=== PATIENT | female | born 1965 | race Caucasian/White ===

== ENCOUNTER 2024-05-31 11:55 | Inpatient (IN) | payer OTHER ==
[2024-05-31] VITALS (7 sets, daily range): BP systolic 159–189; BP diastolic 82–121
[~2024-05-31] VITALS: Ht 154.9 cm; Wt 130.5 kg
[~2024-05-31 11:55] MED LIST: Etomidate 2MG / ML 10ML Vial IV ONE; Rocuronium Bromide 10 MG/ML 5ML Injection IV ONE
[2024-05-31 13:12] LABS: BASOPHILS ABSOLUTE AUTO 0.04 K/mm3 (0.00-0.23); BASOPHILS PERCENT AUTO 0 % (0-2); EOSINOPHILS ABSOLUTE AUTO 0.04 K/mm3 (0.00-0.68); EOSINOPHILS PERCENT AUTO 0 % (0-6); Hematocrit 34.7 % (33.0-51.0); Hemoglobin 11.4 g/dL (11.5-16.0); IMMATURE GRAN ABSOLUTE AUTO 0.09 K/mm3 (0.00-0.10); IMMATURE GRAN PERCENT AUTO 1 % (0-1); LYMPHOCYTES ABSOLUTE AUTO 1.59 K/mm3 (0.84-5.20); LYMPHOCYTES PERCENT AUTO 12 % (21-46); MONOCYTES ABSOLUTE AUTO 0.62 K/mm3 (0.16-1.47); MONOCYTES PERCENT AUTO 5 % (4-13); Mean Corpuscular HGB 28.4 pg (26.0-34.0); Mean Corpuscular HGB Conc 32.9 g/dL (31.5-36.5); Mean Corpuscular Volume 87 fL (80-100); Mean Platelet Volume 10.1 fL (9.1-12.4); NEUTROPHILS ABSOLUTE AUTO 11.18 K/mm3 (1.96-9.15); NEUTROPHILS PERCENT AUTO 82 % (41-73); Platelet Count 225 K/mm3 (150-400); RDW Coefficient Variation 15.3 % (11.7-14.2); RDW Standard Deviation 48.1 fL (35.1-46.3); Red Blood Cell Count 4.01 M/mm3 (3.80-5.20); White Blood Cell Count 13.56 K/mm3 (4.00-11.30)
[2024-05-31 13:39] LABS: Albumin, Blood 3.2 g/dL (3.4-5.0); Albumin/Globulin Ratio 0.9 (0.8-1.8); Bilirubin, Total 0.8 mg/dL (0.1-1.0); Bun/Creatinine Ratio 25.6 (12.0-20.0); Calcium, Blood 8.9 mg/dL (8.5-10.1); Creatinine, Blood 0.7 mg/dL (0.40-1.00); Globulin, Blood 3.7 g/dL (2.2-4.0); Potassium, Blood 3.8 mmol/L (3.5-5.5); Total Protein, Blood 6.9 g/dL (6.4-8.2)
[2024-05-31] MEDS ORDERED: MethylPREDNISolone Sod Succ 125 MG Vial IV ONE (15:05)
[2024-05-31] MEDS ORDERED: NS 1,000 ML IV SCH ×2 (15:05→18:30)
[2024-05-31] MEDS ORDERED: CefTRIAXone Sodium 2,000 MG in NS 100 ML IV ONE (15:05)
[2024-05-31] MEDS ORDERED: Azithromycin 250 MG Tab PO ONE (15:05)
[2024-05-31] MEDS ORDERED: Ibuprofen 600 MG Tab PO ONE (16:45)
[2024-05-31] MEDS ORDERED: Albuterol 2.5 MG/3 ML VIAL INH PRN (18:30)
[2024-05-31] MEDS ORDERED: Ondansetron HCl 2 MG / ML 2ML Vial IV PRN (18:30)
[2024-05-31] MEDS ORDERED: FLU VACC TS2024-25(6MOS UP)/PF 45 MCG/0.5 ML SYRINGE IM SCH (18:30)
[2024-05-31] MEDS ORDERED: TELMISARTAN-HC1 EAC5 PO (20:06)
[2024-05-31] MEDS ORDERED: PRAM.125 PO (20:07)
[2024-05-31] MEDS ORDERED: VALP250 PO (20:07)
[2024-05-31] MEDS ORDERED: OXYB5 PO (20:07)
[2024-05-31] MEDS ORDERED: MONT10T PO (20:07)
[2024-05-31] MEDS ORDERED: BUPR75 PO (20:07)
--- NOTE | 2024-05-31 21:14 | NUR ---
PATIENT TO ICU 2 FROM ER AT 2020. PATIENT IS ALERT AND ORIENTED X4. SP02 88% ON 15L VIA HI-FLOW NC, CONSISTENT CONGESTED COUGH, PINK/RED SPUTUM, DESATS TO LOWER 80s, LS COARSE T/O, RT CALLED AND WILL PLACE ON AIRVO. HR SR 70s, BP HYPERTENSIVE AT TIMES, SOME CHEST TIGHTNESS FROM COUGHING, DENIES CP/PRESSURE OTHERWISE. BEDREST D/T SOB WITH ANY ACTIVITY. CONTINENT. FAMILY AT BEDSIDE, CALL LIGHT IN REACH. SEE ASSESSMENT FOR MORE INFORMATION
[2024-05-31 22:44] LABS: PCO2 Arterial 34.3 mmHg (35-45); PO2 Arterial 57.9 mmHg (80-100); pH Blood Arterial 7.42 (7.35-7.45)
--- NOTE | 2024-05-31 22:44 | NUR ---
PATIENT IN AIRVO FOR APPROX 1 HOUR SO FAR, STILL SOB SP02 89%, RR 30s. HOSPITALIST CALLED, ABG DRAWN AND HE WILL BE AT BEDSIDE TO ASSESS PATIENT
[2024-05-31] MEDS ORDERED: propofoL 100 ML IV SCH (23:10)
[2024-05-31] MEDS ORDERED: FentaNYL Citrate 50 MCG/ML 2 ML Injection IV PRN (23:55)
[2024-06-01] VITALS (93 sets, daily range): BP systolic 95–159; BP diastolic 58–106
[2024-06-01] MEDS ORDERED: Hydrogen Peroxide 1.5 % Solution MT SCH
[2024-06-01] MEDS ORDERED: Midazolam HCl 1MG / ML 2ML Vial IV PRN (00:15)
[2024-06-01 00:47] LABS: Adenovirus Not Detected (NOT DETECT); Coronavirus 229E Not Detected (NOT DETECT); Coronavirus HKU1 Not Detected (NOT DETECT); Coronavirus NL63 Not Detected (NOT DETECT); Coronavirus OC43 Not Detected (NOT DETECT); Human Metapneumovirus Not Detected (NOT DETECT); Human Rhinovirus/Enterovirus Not Detected (NOT DETECT); Influenza A/2009-H1 Not Detected (NOT DETECT); Influenza A/H1 Not Detected (NOT DETECT); Influenza A/H3 Not Detected (NOT DETECT); Influenza B Not Detected (NOT DETECT); Parainfluenza Virus 1 Not Detected (NOT DETECT); Parainfluenza Virus 2 Not Detected (NOT DETECT); Parainfluenza Virus 3 Not Detected (NOT DETECT); Parainfluenza Virus 4 Not Detected (NOT DETECT); SARS-Cov-2 (COVID-19), BioFire Not Detected (NOT DETECT)
[2024-06-01 00:48] LABS: Bordetella pertussis Not Detected (NOT DETECT); Chlamydophila pneumoniae Not Detected (NOT DETECT); Mycoplasma pneumoniae Not Detected (NOT DETECT); Respiratory Syncytial Virus Not Detected (NOT DETECT)
--- NOTE | 2024-06-01 01:02 | NUR ---
PATIENTS WORK OF BREATHING CONTINUED TO INCREASE EVEN ON AIRVO, PATIENT STATING SHE COULDNT BREATHE, SP02 88%, RR 30s. HOSPITALIST TO BEDSIDE DECISION TO INTUBATE, PATIENT AGREED. 2301- 40 MG ETOMIDATE 2302- 80 MG ROCURONIUM 2307- ETT PLACED 8.0 26 CM CHEST X-RAY DONE AND ETT ADJUSTED TO 22 CM AT TEETH AT APPROX 0030. PROPOFOL INSUFING AND PUSHES OF FENTANYL AND VERSED PRN FOR SEDATION ADJUNCT. TRAVIS PLACED, PATENT AND DRAINING TO GRAVITY
[2024-06-01 01:41] LABS: PO2 Arterial 76.5 mmHg (80-100); pH Blood Arterial 7.34 (7.35-7.45)
[2024-06-01 04:03] LABS: BASOPHILS ABSOLUTE AUTO 0.01 K/mm3 (0.00-0.23); BASOPHILS PERCENT AUTO 0 % (0-2); EOSINOPHILS PERCENT AUTO 0 % (0-6); Hematocrit 33.8 % (33.0-51.0); IMMATURE GRAN ABSOLUTE AUTO 0.12 K/mm3 (0.00-0.10); IMMATURE GRAN PERCENT AUTO 1 % (0-1); LYMPHOCYTES ABSOLUTE AUTO 0.83 K/mm3 (0.84-5.20); LYMPHOCYTES PERCENT AUTO 5 % (21-46); MONOCYTES ABSOLUTE AUTO 0.43 K/mm3 (0.16-1.47); MONOCYTES PERCENT AUTO 2 % (4-13); Mean Corpuscular HGB 28.4 pg (26.0-34.0); Mean Corpuscular HGB Conc 32.5 g/dL (31.5-36.5); Mean Corpuscular Volume 87 fL (80-100); Mean Platelet Volume 10.2 fL (9.1-12.4); NEUTROPHILS ABSOLUTE AUTO 16.22 K/mm3 (1.96-9.15); NEUTROPHILS PERCENT AUTO 92 % (41-73); Platelet Count 197 K/mm3 (150-400); RDW Coefficient Variation 15.7 % (11.7-14.2); RDW Standard Deviation 49.7 fL (35.1-46.3); Red Blood Cell Count 3.87 M/mm3 (3.80-5.20); White Blood Cell Count 17.61 K/mm3 (4.00-11.30)
[2024-06-01 04:17] LABS: International Normalized Ratio 1.04; Prothrombin Time Results 11.1 Sec (9.7-11.5)
[2024-06-01 04:25] LABS: Albumin, Blood 2.7 g/dL (3.4-5.0); Albumin/Globulin Ratio 0.8 (0.8-1.8); Bilirubin, Total 0.6 mg/dL (0.1-1.0); Bun/Creatinine Ratio 22.3 (12.0-20.0); Calcium, Blood 8.3 mg/dL (8.5-10.1); Creatinine, Blood 0.72 mg/dL (0.40-1.00); Globulin, Blood 3.6 g/dL (2.2-4.0); Magnesium, Blood 1.7 mg/dL (1.6-2.4); Potassium, Blood 3.7 mmol/L (3.5-5.5); Total Protein, Blood 6.3 g/dL (6.4-8.2)
[2024-06-01 05:06] LABS: Acinetobacter baumannii DNA Not Detected copy/mL (NOT DETECT); Adenovirus DNA Not Detected (NOT DETECT); Chlamydia pneumonia Not Detected (NOT DETECT); Enterobacter cloacae DNA Not Detected copy/mL (NOT DETECT); Escherichia coli DNA Not Detected copy/mL (NOT DETECT); Haemophilus influenzae DNA Not Detected copy/mL (NOT DETECT); Klebsiella aerogenes DNA Not Detected copy/mL (NOT DETECT); Klebsiella oxytoca DNA Not Detected copy/mL (NOT DETECT); Klebsiella pneumoniae DNA Not Detected copy/mL (NOT DETECT); Legionella pneumophila Not Detected (NOT DETECT); Moraxella catarrhalis DNA Not Detected copy/mL (NOT DETECT); Mycoplasma pneumoniae Not Detected (NOT DETECT); Proteus sp DNA Not Detected copy/mL (NOT DETECT); Pseudomonas aeruginosa DNA Not Detected copy/mL (NOT DETECT); Serratia marcescens DNA Not Detected copy/mL (NOT DETECT); Staphylococcus aureus DNA Not Detected copy/mL (NOT DETECT); Streptococcus agalactiae DNA Not Detected copy/mL (NOT DETECT); Streptococcus pneumoniae DNA Not Detected copy/mL (NOT DETECT); Streptococcus pyogenes DNA Not Detected copy/mL (NOT DETECT)
[2024-06-01 05:07] LABS: Human Coronavirus RNA Detected (NOT DETECT); Human Metapneumovirus RNA Not Detected (NOT DETECT); Influenza virus A RNA Not Detected (NOT DETECT); Influenza virus B RNA Not Detected (NOT DETECT); Parainfluenza virus RNA Not Detected (NOT DETECT); Respiratory syncytial Vir RNA Not Detected (NOT DETECT); Rhinovirus+Enterovirus RNA Not Detected (NOT DETECT)
--- NOTE | 2024-06-01 06:35 | NUR ---
SHIFT SUMMARY PATIENT REMAINS INTUBATED AND SEDATED ON PROPOFOL. SP02 92% ON VENT AC VC 28/375/12/70%, RR 30s, LS COARSE, SMALL TO MODERATE AMOUNT OF THINK PINK/RED SPUTUM, CULTURE SENT. HR SR 70s, BP STABLE. TRAVIS PATENT AND NOW DRAINING CLOUDY URINE, URINE SENT TO LAB. OG TO LIS.
[2024-06-01] MEDS ORDERED: Cetylpyridinium Chloride 1 EA MISC MT SCH (08:00)
--- NOTE | 2024-06-01 08:00 | NUR ---
ASSUME CARE: BEDSIDE REPORT RECIEVED FROM FILIBERTO BENTLEY. PT INTUBATED AND SEDATED, RASS -1 TO +1. PROPOFOL GTT AT 55 MCG/KG/HR. SPO2>90% ON VENT, SEE RT NOTES FOR SETTINGS. SBP 110s-120s, MAP>65, MONITOR SHOWS SINUS RYTHM, RATE 70s. OG PATENT ON INTERMITTENT SUCTION. TRAVIS PATENT DRAINING TO GRAVITY. FATHER AT BEDSIDE. WILL UPDATE NEEDED.
[2024-06-01] MEDS ORDERED: LORazepam 2 MG/ML 1ML Injection IV PRN (09:45)
[2024-06-01 10:07] LABS: Source, Urine Foley catheter
[2024-06-01 10:10] LABS: Bilirubin, Urine Neg (Neg); Blood, Urine 2+ (Neg); Glucose Qualitative, Urine Neg (Neg); Ketones, Urine 2+ (Neg); Leukocyte Esterase, Urine Neg (Neg); Nitrite, Urine Neg (Neg); Protein, Urine 2+ (Neg); Urobilinogen, Urine NORM (Normal)
[2024-06-01 10:17] LABS: Appearance, Urine Turbid (Clear); Color, Urine Yellow (P-Yellow)
[2024-06-01 10:19] LABS: Bacteria Rare /hpf; Red Blood Cells, Urine 0-2 /hpf (0-2); Squamous Epithelial Cells Rare /hpf (Few); White Blood Cells, Urine 0-2 /hpf (0-5)
[2024-06-01] MEDS ORDERED: FentaNYL Citrate 50 MCG/ML 2 ML Injection IV PRN (11:20)
[2024-06-01] MEDS ORDERED: Meropenem 1,000 MG in NS 100 ML IV SCH (11:27)
[2024-06-01] MEDS ORDERED: Protein Supplement 30 ML UD PT SCH ×2 (11:35→21:00)
[2024-06-01] MEDS ORDERED: Insulin Regular 100 UNIT/ML 10ML Vial SC SCH (12:00)
[2024-06-01] MEDS ORDERED: MethylPREDNISolone Sod Succ 1,000 MG in Dextrose 5% 50 ML IV SCH (12:35)
[2024-06-01 13:13] LABS: Other Cells, BAL 1 % (0-1)
[2024-06-01 13:47] LABS: Acinetobacter baumannii DNA Not Detected copy/mL (NOT DETECT); Adenovirus DNA Not Detected (NOT DETECT); Chlamydia pneumonia Not Detected (NOT DETECT); Enterobacter cloacae DNA Not Detected copy/mL (NOT DETECT); Escherichia coli DNA Not Detected copy/mL (NOT DETECT); Haemophilus influenzae DNA Not Detected copy/mL (NOT DETECT); Human Coronavirus RNA Not Detected (NOT DETECT); Human Metapneumovirus RNA Not Detected (NOT DETECT); Influenza virus A RNA Not Detected (NOT DETECT); Influenza virus B RNA Not Detected (NOT DETECT); Klebsiella aerogenes DNA Not Detected copy/mL (NOT DETECT); Klebsiella oxytoca DNA Not Detected copy/mL (NOT DETECT); Klebsiella pneumoniae DNA Not Detected copy/mL (NOT DETECT); Legionella pneumophila Not Detected (NOT DETECT); Moraxella catarrhalis DNA Not Detected copy/mL (NOT DETECT); Mycoplasma pneumoniae Not Detected (NOT DETECT); Parainfluenza virus RNA Not Detected (NOT DETECT); Proteus sp DNA Not Detected copy/mL (NOT DETECT); Pseudomonas aeruginosa DNA Not Detected copy/mL (NOT DETECT); Respiratory syncytial Vir RNA Not Detected (NOT DETECT); Rhinovirus+Enterovirus RNA Not Detected (NOT DETECT); Serratia marcescens DNA Not Detected copy/mL (NOT DETECT); Staphylococcus aureus DNA Not Detected copy/mL (NOT DETECT); Streptococcus agalactiae DNA Not Detected copy/mL (NOT DETECT); Streptococcus pneumoniae DNA Not Detected copy/mL (NOT DETECT); Streptococcus pyogenes DNA Not Detected copy/mL (NOT DETECT)
[2024-06-01] MEDS ORDERED: Heparin Sodium,Porcine 5,000 UNIT/0.5 ML SDV SC SCH (16:00)
[2024-06-01] MEDS ORDERED: CefTRIAXone Sodium 1,000 MG in NS 100 ML IV SCH (16:00)
[2024-06-01] MEDS ORDERED: Azithromycin 500 MG in NS 250 ML IV SCH (17:00)
--- NOTE | 2024-06-01 18:30 | NUR ---
SHIFT SUMMARY: PT INTUBATED AND SEDATED, RASS -1, PT AWAKES TO VERBAL STIMULI, PROPOFOL GTT AT 45 MCG/KG/MIN. PT AGITATED AT TIMES, MEDICATED PER EMAR. MEDICATED PER EMAR FOR PAIN. SBP 130s, MAP>65. SPO2>95% ON VENT, SEE RT NOTES FOR SETTINGS. MONITOR SHOWS SINUS RYTHM, RATE 80s. OG PATENT DRAINING TO INTERMITTENT SUCTION. TRAVIS PATENT DRAINING TO GRAVITY. WILL REPORT TO ONCOMING RN.
--- NOTE | 2024-06-01 19:33 | NUR ---
ASSUMED CARE AT 1900 PATIENT IS INTUBATED AND SEDATED ON PROPOFOL, PRN MEDICATION FOR SEDATION PER EMAR. RESPONDS TO TOUCH, MOVES ALL EXTREMITIES. SP02 95% ON VENT AC VC 20/325/2/70%, RR 29. SUCTIONED SMALL AMOUNT OF THIN PINK SPUTUM FROM ETT. HR SR 70s, BP STABLE. OG TO LIS, GREEN BILE OUTPUT. TRAVIS PATENT AND DRAINING CLOUDY SEDIMENT OUTPUT. PATIENT REPOSITIONED AND ORAL CARE DONE. SEE SHIFT ASSESSMENT FOR MORE INFORMATION
[2024-06-01] MEDS ORDERED: NS 250 ML IV PRN (23:45)
[2024-06-02] VITALS (94 sets, daily range): BP systolic 128–181; BP diastolic 76–133
[2024-06-02 03:48] LABS: BASOPHILS PERCENT AUTO 0 % (0-2); EOSINOPHILS PERCENT AUTO 0 % (0-6); Hematocrit 33.6 % (33.0-51.0); Hemoglobin 10.8 g/dL (11.5-16.0); IMMATURE GRAN PERCENT AUTO 1 % (0-1); LYMPHOCYTES ABSOLUTE AUTO 0.64 K/mm3 (0.84-5.20); LYMPHOCYTES PERCENT AUTO 5 % (21-46); MONOCYTES ABSOLUTE AUTO 0.29 K/mm3 (0.16-1.47); MONOCYTES PERCENT AUTO 2 % (4-13); Mean Corpuscular HGB 28.1 pg (26.0-34.0); Mean Corpuscular HGB Conc 32.1 g/dL (31.5-36.5); Mean Corpuscular Volume 88 fL (80-100); Mean Platelet Volume 10.7 fL (9.1-12.4); NEUTROPHILS ABSOLUTE AUTO 11.26 K/mm3 (1.96-9.15); NEUTROPHILS PERCENT AUTO 92 % (41-73); Platelet Count 195 K/mm3 (150-400); RDW Coefficient Variation 15.6 % (11.7-14.2); RDW Standard Deviation 49.7 fL (35.1-46.3); Red Blood Cell Count 3.84 M/mm3 (3.80-5.20); White Blood Cell Count 12.29 K/mm3 (4.00-11.30)
[2024-06-02 04:06] LABS: Alanine Aminotransfer (ALT/SGP 25 U/L (12-78); Albumin, Blood 2.7 g/dL (3.4-5.0); Albumin/Globulin Ratio 0.6 (0.8-1.8); Alk Phos 54 U/L (50-136); Anion Gap 11 mmol/L (3-11); Aspartate Aminotrans (AST/SGOT 27 U/L (12-37); Bilirubin, Total 0.5 mg/dL (0.1-1.0); Blood Urea Nitrogen 25 mg/dL (8-24); Bun/Creatinine Ratio 39.3 (12.0-20.0); CO2, Blood 24 mmol/L (21-32); Calcium, Blood 8.7 mg/dL (8.5-10.1); Chloride, Blood 108 mmol/L (98-108); Creatinine, Blood 0.64 mg/dL (0.40-1.00); Globulin, Blood 4.2 g/dL (2.2-4.0); Glomerular Filtration Rate 102 (60-); Glucose, Blood 163 mg/dL (70-99); Magnesium, Blood 2.4 mg/dL (1.6-2.4); Phosphorus, Blood 2.2 mg/dL (2.5-4.9); Potassium, Blood 4.2 mmol/L (3.5-5.5); Sodium, Blood 139 mmol/L (136-145); Total Protein, Blood 6.9 g/dL (6.4-8.2); Triglycerides 180 mg/dL (30-160)
--- NOTE | 2024-06-02 05:53 | NUR ---
SHIFT SUMMARY PATIENT REMAINS INTUBATED AND SEDATED ON PROPOFOL, PRN MEDICATION ALSO GIVEN FOR SEDATION AND VENT COMPLIANCE. SP02 98% ON VENT AC PC 22/15 PEEP 14, FI02 80%, SETTINGS CHANGED FROM AC VC DUE TO PATIENTS OXYEGN SATS DECREASING TO 88% WITH NO IMPROVEMENT WHEN FI02 INCREASED, DR. FERREIRA AWARE. MINIMAL SPUTUM SUCTIONED FROM ETT. HR SR 70s MOST THE NIGHT, AT APPROX 0330 PATIENT INTO A.FIB RVR 160s-170s EKG DONE, CALLED DR. FERREIRA, AMIO BOLUS AND INFUSION STARTED. OG TO LIS, GREEN BILE OUTPUT. TRAVIS PATENT AND DRAINING CLOUDY URINE. PATIENT REPOSITIONED ABLE TO GIVEN OXYGEN SATURATIONS AND VENT COMPLIANCE
[2024-06-02] MEDS ORDERED: Metoprolol Tartrate 1 MG/ML 5 ML VIAL IV ONE (06:25)
[2024-06-02] MEDS ORDERED: Metoprolol Tartrate 1 MG/ML 5 ML VIAL IV SCH (06:30)
--- NOTE | 2024-06-02 07:27 | NUR ---
ASSUME CARE: BEDSIDE REPORT RECIEVED FROM FILIBERTO BENTLEY. PT INTUBATED AND SEDATED, RASS -3. PROPOFOL GTT AT 55 MCG/KG/MIN. AMIO GTT AT 0.9 MG/MIN. SBP 130s, MAP>65, MONITOR SHOWS AFIB RATE 110s. SPO2>95% ON VENT, SEE RT NOTES FOR SETTINGS. OG PATENT TO INTERMITTENT SUCTION, TRAVIS PATENT DRAINING TO GRAVITY. WILL UPDATE NEEDED.
[2024-06-02] MEDS ORDERED: Labetalol HCL 5 MG/ML 4ML Injection (Single Dose) IV PRN (08:40)
[2024-06-02] MEDS ORDERED: Metoprolol Tartrate 25 MG Tab PT SCH (08:40)
--- NOTE | 2024-06-02 09:00 | NUR ---
UPDATE: DR. FERREIRA CALLED REGARDING PT ELEVATED BLOOD PRESSURES. NEW ORDERS GIVEN, SEE EMAR.
[2024-06-02] MEDS ORDERED: CALCIUM GLUC IN NACL, ISO-OSM 100 ML IV ONE (09:45)
[2024-06-02] MEDS ORDERED: NS 1,000 ML IV SCH ×2 (10:00→19:10)
[2024-06-02] MEDS ORDERED: Sodium Phosphate Mono/Dibasic 250 MG Tab PO SCH (10:00)
[2024-06-02 11:57] LABS: Base Excess Venous 1.5 mmol/L; Bicarbonate Venous 25.6 mmol/L (24.0-30.0); PCO2 Venous 40 mmHg (38-42); pH Blood Venous 7.42 (7.34-7.37)
[2024-06-02 14:09] LABS: Anti-Xa UFH, PHA Monitoring <0.10 IU/mL
[2024-06-02] MEDS ORDERED: Heparin Sodium,Porcine/0.5 NS 500 ML IV SCH (14:20)
--- NOTE | 2024-06-02 17:30 | NUR ---
SHIFT SUMMARY: PT INTUBATED AND SEDATED, RASS -3, PROPOFOL GTT AT 55 MCG/KG/MIN. SPO2>95% ON VENT, SETTINGS AC PC 12/10 RATE 22 AT 60% FIO2. SBP 140s-170s, MAP>65. PT MEDICATED PER EMAR FOR HIGH SBP. MONITOR SHOWS AFIB RATE 90s-110s. OG PATENT DRAINING TO GRAVITY. TRAVIS PATENT DRAINING DARK YELLOW URINE TO GRAVITY, GOOD OUTPUT THIS SHIFT. FAMILY AT BEDSIDE INTERMITTENTLY THROUGHOUT THE DAY. WILL REPORT TO ONCOMING RN.
--- NOTE | 2024-06-02 20:00 | NUR ---
ASSUMED CARE OF PT AT 1900. REPORT RECEIVED AT BEDSIDE. PT PRESENTS IN BED. INTUBATED. RESPIRATORY TO ROOM CHANGES PT BACK TO AC SETTINGS. INCREASING PEEP TO 14. PT MAINTAINS SATURATIONS > 90 PERCENT WITH THIS. WILL REVIEW CHART AND PLAN OF CARE FOR THIS PT.
[2024-06-02] MEDS ORDERED: Dose Adjust by Pharmacy XX STA (22:17)
[2024-06-03] VITALS (94 sets, daily range): BP systolic 119–183; BP diastolic 71–135
[2024-06-03 03:49] LABS: PCO2 Venous 38 mmHg (38-42); pH Blood Venous 7.44 (7.34-7.37)
[2024-06-03 03:50] LABS: Base Excess Venous 1.4 mmol/L; Bicarbonate Venous 25.7 mmol/L (24.0-30.0)
[2024-06-03 03:53] LABS: BASOPHILS ABSOLUTE AUTO 0.01 K/mm3 (0.00-0.23); BASOPHILS PERCENT AUTO 0 % (0-2); EOSINOPHILS PERCENT AUTO 0 % (0-6); Hematocrit 32.4 % (33.0-51.0); Hemoglobin 10.5 g/dL (11.5-16.0); IMMATURE GRAN ABSOLUTE AUTO 0.16 K/mm3 (0.00-0.10); IMMATURE GRAN PERCENT AUTO 1 % (0-1); LYMPHOCYTES ABSOLUTE AUTO 0.99 K/mm3 (0.84-5.20); LYMPHOCYTES PERCENT AUTO 8 % (21-46); MONOCYTES ABSOLUTE AUTO 0.87 K/mm3 (0.16-1.47); MONOCYTES PERCENT AUTO 7 % (4-13); Mean Corpuscular HGB 28.3 pg (26.0-34.0); Mean Corpuscular HGB Conc 32.4 g/dL (31.5-36.5); Mean Corpuscular Volume 87 fL (80-100); Mean Platelet Volume 10.3 fL (9.1-12.4); NEUTROPHILS ABSOLUTE AUTO 10.22 K/mm3 (1.96-9.15); NEUTROPHILS PERCENT AUTO 83 % (41-73); NRBC ABSOLUTE 0.02 K/mm3 (0.00-0.02); NRBC Auto 0.2 /100 WBC (0.0-0.2); Platelet Count 218 K/mm3 (150-400); RDW Coefficient Variation 15.5 % (11.7-14.2); RDW Standard Deviation 49.5 fL (35.1-46.3); Red Blood Cell Count 3.71 M/mm3 (3.80-5.20); White Blood Cell Count 12.25 K/mm3 (4.00-11.30)
[2024-06-03 04:11] LABS: Albumin, Blood 2.5 g/dL (3.4-5.0); Albumin/Globulin Ratio 0.7 (0.8-1.8); Bilirubin, Total 0.3 mg/dL (0.1-1.0); Bun/Creatinine Ratio 46.3 (12.0-20.0); Calcium, Blood 8.6 mg/dL (8.5-10.1); Creatinine, Blood 0.58 mg/dL (0.40-1.00); Globulin, Blood 3.8 g/dL (2.2-4.0); Magnesium, Blood 2.3 mg/dL (1.6-2.4); Phosphorus, Blood 2.8 mg/dL (2.5-4.9); Potassium, Blood 3.9 mmol/L (3.5-5.5); Total Protein, Blood 6.3 g/dL (6.4-8.2)
[2024-06-03] MEDS ORDERED: Dose Adjust by Pharmacy XX STA (04:40)
--- NOTE | 2024-06-03 06:46 | NUR ---
PT REMAINS ON PROPOFOL AT 55 MCG'S/KG/MIN DOES HAVE SEDATION VACATION THIS MORNING. DOES NOT AWAKEN ENOUGH TO FOLLOW COMMANDS. AMIODARONE CONTINUES AT 0.5 MG'S. HAVE NOT REQUIRE MUCH SUCTIONING THIS NIGHT. NO BLOOD NOTED. HAS HAD TRANSIENT HYPERTENSION. MEDICATED TWICE WITH 40 MG LABATELOL AND WITH 25 MCG'S FENTANYL. DOES HAVE SOME IMPROVEMENTS IN BLOOD PRESSURES. HAS AGAIN ELEVATED. MEDICATED WITH SCHEDULED METOPROLOL. PENDING RESULTS. WILL CONTINUE TO MONITOR PT, AND WILL REPORT OFF TO ONCOMING RN.
[2024-06-03 07:20] LABS: ANTI-NUCLEAR AB ANA,IGG ELISA None Detected (None Detected)
--- NOTE | 2024-06-03 07:46 | NUR ---
ASSUME CARE: BEDSIDE REPORT RECIEVED FROM FILIBERTO CHINCHILLA. PT INTUBATED AND SEDATED, RASS -3, PROPOFOL AT 55 MCG/KG/MIN. PT RESPONDS TO PAINFUL STIMULI. HEPARIN GTT AT 17 U/HR. AMIO AT 0.5 MCG/HR. SBP 160s, MAP>65. MONITOR SHOWS AFIB RATE 80s-90s. OG PATENT. TRAVIS PATENT TO GRAVITY. WILL UPDATE NEEDED.
[2024-06-03] MEDS ORDERED: Multivitamins-Minerals Liquid 15 ML Oral Syringe PT SCH (09:00)
[2024-06-03] MEDS ORDERED: Lactobacil 2-S.Thermo-Bifido 1 1 Cap PT SCH (09:00)
[2024-06-03] MEDS ORDERED: HydrALAZINE HCl 20 MG / ML 1ML Vial IV PRN (10:00)
[2024-06-03] MEDS ORDERED: Losartan/HCTZ 50-12.5 TAB PT SCH (10:00)
[2024-06-03] MEDS ORDERED: Protein Supplement 30 ML UD PT SCH (17:30)
--- NOTE | 2024-06-03 17:34 | NUR ---
SHIFT SUMMARY: PT INTUBATED AND SEDATED, RASS -1 AT REST, AND +1 WHEN STIMULATED. PROPOFOL GTT AT 20 MCG/KG/MIN. MEDICATED PER EMAR FOR PAIN AND ANXIETY. SBP 150s-180s THROUGHOUT THE DAY, NEW ORDERS RECIEVED FROM DR. FERREIRA REGARDING HIGH BPs, SEE EMAR. SPO2>95% ON VENT, SETTINGS ACVC 22/325/8/35%. MONITOR SHOWS AFIB RYTHM RATE 90s-100s. HEPARIN GTT INFUSING AT 17 U/HR. OG PATENT, CLAMPED. TRAVIS PATENT DRAINING TO GRAVITY, GOOD OUTPUT THIS SHIFT. FAMILY AT BEDSIDE INTERMITTENTLY THROUGHOUT THE DAY. WILL REPORT TO ONCOMING RN.
[2024-06-03 18:27] LABS: COMPLEMENT COMPONENT 3 148 mg/dL (90-180); COMPLEMENT COMPONENT 4 27 mg/dL (10-40)
--- NOTE | 2024-06-03 20:00 | NUR ---
ASSUMED CARE OF PT AT 1900. REPORT RECEIVED AT BEDSIDE. PT PRESENTS IN BED. INTUBATED. AC 22, 320, 8.0 AND 35 PERCENT FIO2. PT MAINTAINS SATURATIONS > 90 PERCENT WITH THIS. PT ON PROPOFOL AT 20 MCG'S/KG/MIN AND HEPARIN AT 17 UNITS PER PHARMACY. WILL REVIEW CHART AND PLAN OF CARE FOR THIS PT.
[2024-06-04] VITALS (93 sets, daily range): BP systolic 116–183; BP diastolic 68–118
--- NOTE | 2024-06-04 | NUR ---
PT HAS MAINTAINED WELL ON VENT, AND LOW PROPOFOL DRIP AT 20 MCG'S/KG/MIN. PT REMAINS IN NO S/S DISTRESS. OXYGEN SATURATIONS > 90 PERCENT. GOOD URINE OUTPUT NOTED. BLOOD PRESSURES HAVE MAINTAINED WELL. WILL CONTINUE TO MONITOR.
[2024-06-04 04:52] LABS: BASOPHILS ABSOLUTE AUTO 0.02 K/mm3 (0.00-0.23); BASOPHILS PERCENT AUTO 0 % (0-2); EOSINOPHILS PERCENT AUTO 0 % (0-6); Hematocrit 31.2 % (33.0-51.0); Hemoglobin 10.1 g/dL (11.5-16.0); IMMATURE GRAN PERCENT AUTO 3 % (0-1); LYMPHOCYTES ABSOLUTE AUTO 1.29 K/mm3 (0.84-5.20); LYMPHOCYTES PERCENT AUTO 11 % (21-46); MONOCYTES ABSOLUTE AUTO 0.82 K/mm3 (0.16-1.47); MONOCYTES PERCENT AUTO 7 % (4-13); Mean Corpuscular HGB 28.2 pg (26.0-34.0); Mean Corpuscular HGB Conc 32.4 g/dL (31.5-36.5); Mean Corpuscular Volume 87 fL (80-100); Mean Platelet Volume 10.2 fL (9.1-12.4); NEUTROPHILS ABSOLUTE AUTO 9.43 K/mm3 (1.96-9.15); NEUTROPHILS PERCENT AUTO 79 % (41-73); NRBC ABSOLUTE 0.03 K/mm3 (0.00-0.02); NRBC Auto 0.3 /100 WBC (0.0-0.2); Platelet Count 228 K/mm3 (150-400); RDW Coefficient Variation 15.7 % (11.7-14.2); RDW Standard Deviation 49.7 fL (35.1-46.3); Red Blood Cell Count 3.58 M/mm3 (3.80-5.20); White Blood Cell Count 11.96 K/mm3 (4.00-11.30)
[2024-06-04] MEDS ORDERED: Dose Adjust by Pharmacy XX STA (05:11)
[2024-06-04 05:12] LABS: Albumin, Blood 2.3 g/dL (3.4-5.0); Albumin/Globulin Ratio 0.7 (0.8-1.8); Bilirubin, Total 0.4 mg/dL (0.1-1.0); Bun/Creatinine Ratio 52.4 (12.0-20.0); Calcium, Blood 8.4 mg/dL (8.5-10.1); Creatinine, Blood 0.57 mg/dL (0.40-1.00); Globulin, Blood 3.5 g/dL (2.2-4.0); Magnesium, Blood 2.3 mg/dL (1.6-2.4); Phosphorus, Blood 2.6 mg/dL (2.5-4.9); Potassium, Blood 3.5 mmol/L (3.5-5.5); Total Protein, Blood 5.8 g/dL (6.4-8.2)
--- NOTE | 2024-06-04 06:30 | NUR ---
HAVE DONE FULL BEDBATH, AND LINEN CHANGE THIS NIGHT. PT WAS PREMEDICATED WITH 2 MG ATIVAN AND 50 MCG'S FENTANYL. DURING SEDATION VACATION, PT WOULD OPEN HER EYES. COULD NOT GET PT TO FOLLOW COMMANDS AT THIS TIME. WILL CONTINUE TO MONITOR PT, AND WILL REPORT OFF TO ONCOMING RN.
--- NOTE | 2024-06-04 07:00 | NUR ---
ASSUMED CARE OF PATIENT AT APPROXIMATELY 0700. REPORT RECEIVED FROM FILIBERTO CHINCHILLA. PT INTUBATED AND SEDATED. UNABLE TO FOLLOW COMMANDS OR MAKE PURPOSEFUL MOVEMENTS. CONTINUOUS CARDIAC MONITORING IN PLACE SHOWING AFIB/AFLUTTER WITH HR 80'S-110'S. HYPERTENSIVE AT 171/104. VENT SETTINGS A/C VC 22/325/8/30%. O2 SATURATION 98%. TRAVIS PATENT AND DRAINING TO GRAVITY. HEPARIN INFUSING AT 17 U/KG/HR, PROPOFOL INFUSING AT 20 MCG/KG/MIN, TKO INFUSING. SEE SHIFT ASSESSMENT FOR FULL DETAILS.
[2024-06-04] MEDS ORDERED: MethylPREDNISolone Sod Succ 500 MG in Dextrose 5% 50 ML IV SCH (09:00)
[2024-06-04] MEDS ORDERED: MethylPREDNISolone Sod Succ 125 MG Vial IV SCH (09:00)
[2024-06-04] MEDS ORDERED: Furosemide 10 MG / ML 2ML Vial IV ONE (09:45)
[2024-06-04] MEDS ORDERED: Potassium Chloride 20 MEQ/15 ML UDC PO SCH (10:00)
[2024-06-04] MEDS ORDERED: Potassium Chloride 20 MEQ/15 ML UDC PT SCH (10:00)
[2024-06-04] MEDS ORDERED: Metoprolol Tartrate 25 MG Tab PT SCH (12:00)
--- NOTE | 2024-06-04 18:35 | NUR ---
SHIFT SUMMARY PT REMAINED INTUBATED AND SEDATED T/O ENTIRETY OF SHIFT. UNABLE TO FOLLOW COMMANDS OR MAKE PURPOSEFUL MOVEMENTS. OPENS EYES PERIODICALLY BUT DOES NOT MAKE EYE CONTACT. AFEBRILE. MEDICATED PER EMAR WITH FENTANYL AND ATIVAN FOR ADDED VENT COMPLIANCE TO KEEP PROPOFOL INFUSION <= 20 (SEE DIETARY ASSESSMENTS). HYPERTENSIVE AT TIMES, MEDICATED PER EMAR WITH GOOD BENEFIT. CONTINUOUS CARDIAC MONITORING SHOWS AFIB-AFLUTTER. VENT SETTINGS ARE A/C VC 22/325/8/30%. MODERATE WHITE ORAL SECRETIONS. O2 SATURATIONS > 92%. NO BM THIS SHIFT. TRAVIS PATENT AND DRAINING TO GRAVITY. HEPARIN INFUSING AT 17 U/KG/HR. WILL CONTINUE TO MONITOR AND REPORT TO ONCOMING RN.
[2024-06-04] MEDS ORDERED: BuPROPion HCl 75 MG Tab PT SCH (21:00)
--- NOTE | 2024-06-04 22:34 | NUR ---
START OF SHIFT PT LYING IN BED VENTILATED AND SEDATED HANDOFF REPORT RECEIVED IN ROOM FROM FILIBERTO COREA. PT SEDATED, RASS -2, OPENS EYES TO PAIN AND SOME VOICE. DOES NOT FOLLOW COMMANDS. PROPOFOL INFUSING AT 20 MCG/KG/MIN; FENTANYL AND ATIVAN PRN SEDATON ADJUNCT. CONTROLLED AFIB RHYTHM WITH RATE OF 90 - 110. BP IS CLIMBING, TREATED WITH SCHEDULED METOPROLOL, WHICH WAS INCREASED TODAY, AND PRN LABETALOL AND HYDRALAZINE. VENT SETTINGS IN ASSESSMENT; PT HANDLING WELL (SYMMETRIC CHEST EXPANSION, NOT FIGHTING VENT). OG TUBE IN PLACE TO NON SUCTIONING WALL SUCTION. TRAVIS DRAINING YELLOW URINE TO GRAVITY. SOFT RESTRAINTS IN PLACE ON UPPER EXTREMITIES.
[2024-06-05] VITALS (82 sets, daily range): BP systolic 125–183; BP diastolic 75–125
[2024-06-05 06:41] LABS: Hematocrit 34.7 % (33.0-51.0); Hemoglobin 11.4 g/dL (11.5-16.0); Mean Corpuscular HGB 28.1 pg (26.0-34.0); Mean Corpuscular HGB Conc 32.9 g/dL (31.5-36.5); Mean Corpuscular Volume 86 fL (80-100); Mean Platelet Volume 9.8 fL (9.1-12.4); NRBC ABSOLUTE 0.05 K/mm3 (0.00-0.02); NRBC Auto 0.3 /100 WBC (0.0-0.2); Platelet Count 280 K/mm3 (150-400); RDW Coefficient Variation 15.9 % (11.7-14.2); RDW Standard Deviation 49.1 fL (35.1-46.3); Red Blood Cell Count 4.06 M/mm3 (3.80-5.20); White Blood Cell Count 14.72 K/mm3 (4.00-11.30)
[2024-06-05 07:13] LABS: BAND PERCENT MAN 1 % (0-8); BASOPHILS PERCENT MAN 0 % (0-2); EOSINOPHILS PERCENT MAN 0 % (0-6); LYMPHOCYTES PERCENT MAN 15 % (21-46); METAMYELOCYTE ABSOLUTE MAN 0.29 K/mm3 (0.00-0.00); METAMYELOCYTE PERCENT MAN 2 % (0-0); MONOCYTES ABSOLUTE MAN 0.58 K/mm3 (0.16-1.47); MONOCYTES PERCENT MAN 4 % (4-13); MYELOCYTE ABSOLUTE MAN 0.29 K/mm3 (0.00-0.00); MYELOCYTE PERCENT MAN 2 % (0-0); NEUTROPHILS ABSOLUTE MAN 11.33 K/mm3 (1.96-9.15); SEG NEUTROPHILS PERCENT MAN 76 % (41-73); TOTAL CELLS COUNTED 100
[2024-06-05 07:18] LABS: Albumin, Blood 2.6 g/dL (3.4-5.0); Albumin/Globulin Ratio 0.7 (0.8-1.8); Bilirubin, Total 0.6 mg/dL (0.1-1.0); Bun/Creatinine Ratio 58.6 (12.0-20.0); Creatinine, Blood 0.6 mg/dL (0.40-1.00); Globulin, Blood 3.9 g/dL (2.2-4.0); Phosphorus, Blood 3.1 mg/dL (2.5-4.9); Potassium, Blood 3.8 mmol/L (3.5-5.5); Total Protein, Blood 6.5 g/dL (6.4-8.2)
[2024-06-05] MEDS ORDERED: Pantoprazole Sodium 40 MG Injection IV SCH (09:00)
[2024-06-05] MEDS ORDERED: Furosemide 10 MG / ML 2ML Vial IV SCH (09:00)
[2024-06-05] MEDS ORDERED: Furosemide 10 MG/ML 4ML Vial IV ONE (09:50)
[2024-06-05] MEDS ORDERED: PredniSONE 20 MG Tab PT SCH (09:58)
--- NOTE | 2024-06-05 13:34 | NUR ---
UPDATE: PT EXTUBATED AT 1325 BY DAYSI [place]. PT TOLERATED WELL, PLACED ON 2L NC INITIALLY, THEN SWITCHED TO HOME CPAP OF 10. SPO2 92-94%. PT ORIENTED TO SELF AND LOCATION. FOLLOWING DIRECTION, DENIES PAIN. HAS MODERATE SECRETIONS SUCTIONED ORALLY. FAMILY AT BEDSIDE. RESTRAINTS REMOVED. BED LOW AND LOCKED.
--- NOTE | 2024-06-05 18:04 | NUR ---
DAY SHIFT SUMMARY PT BEGAN THE SHIFT INTUBATED AND SEDATED W PROPOFOL GTT BUT WAS EXTUBATED AFTER LUNCH MAINTAINING SPO2 >92% ON HER HOME CPAP WHICH HAS A CPAP OF 10 W NO 02 BLEED-IN. PT'S MENTATION IMPROVING T/O THE SHIFT AND IS AXO TO SELF, PLACE AND SITUATION. PT ABLE TO TOLERATE THIN LIQUIDS BUT IS PENDING A SPEECH EVAL IN THE AM FOR ADVANCING DIET. PT'S BP ELEVATED THIS AM BUT HAS BEEN WNL AND STABLE POST EXTUBATION. MONITOR SHOWING AFIB 80'S-110'S THIS SHIFT. PT GIVEN IV LASIX THIS AM AND HAS HAD VERY GOOD URINE OUTPUT OUT OF HER TRAVIS CATHETER, SEE I&O'S FOR DETAILS. PT HAS HEPARIN GTT INFUSING UNINTERUPTED ALL SHIFT. WILL REPORT TO ONCOMING RN.
--- NOTE | 2024-06-05 21:38 | NUR ---
START OF SHIFT START OF SHIFT PT LYING IN BED WITH CPAP ON AT 10 AND >92% SATURATION. PT BREATHING IS SYMMETRIC AND UNLABORED. PT BROTHER AND FATHER ARE IN ROOM. REPORT RECEIVED FROM FILIBERTO ASHER. PT IS ALERT AND ORIENTED TO ALL, BUT SAYS SHE IS TIRED AND FEELS WEAK. CONTROLLED AFIB RHYTHM WITH RATE OF 90 - 110. BP IS ELEVATED AT 150/100, TREATED WITH SCHEDULED METOPROLOL, AND PRN LABETALOL AND HYDRALAZINE. LAKESHIA RN SAYS PT RESPONDS BEST TO HYDRALAZINE. HEPARIN INFUSING AT PHARMACY ADJUSTED RATE OF 17 UNITS/KG/HR. PT DENIES CHEST PAIN/PRESSURE, SOB, AB PAIN, N/V, DIZZINESS/CONFUSION. TRAVIS DRAINING YELLOW URINE TO GRAVITY. PT LEFT WITH CALL LIGHT HANDY. =
[2024-06-06] VITALS (16 sets, daily range): BP systolic 119–174; BP diastolic 72–124
[2024-06-06 03:53] LABS: Hematocrit 37.2 % (33.0-51.0); Hemoglobin 12.1 g/dL (11.5-16.0); Mean Corpuscular HGB 28.1 pg (26.0-34.0); Mean Corpuscular HGB Conc 32.5 g/dL (31.5-36.5); Mean Corpuscular Volume 86 fL (80-100); Mean Platelet Volume 10.1 fL (9.1-12.4); NRBC ABSOLUTE 0.02 K/mm3 (0.00-0.02); NRBC Auto 0.2 /100 WBC (0.0-0.2); Platelet Count 280 K/mm3 (150-400); RDW Coefficient Variation 15.7 % (11.7-14.2); RDW Standard Deviation 49.3 fL (35.1-46.3); Red Blood Cell Count 4.31 M/mm3 (3.80-5.20); White Blood Cell Count 12.94 K/mm3 (4.00-11.30)
[2024-06-06 04:14] LABS: Albumin, Blood 2.7 g/dL (3.4-5.0); Anion Gap 8 mmol/L (3-11); Blood Urea Nitrogen 42 mg/dL (8-24); Bun/Creatinine Ratio 70.4 (12.0-20.0); CO2, Blood 31 mmol/L (21-32); Calcium, Blood 9.1 mg/dL (8.5-10.1); Chloride, Blood 102 mmol/L (98-108); Glomerular Filtration Rate 104 (60-); Glucose, Blood 109 mg/dL (70-99); Phosphorus, Blood 3.7 mg/dL (2.5-4.9); Potassium, Blood 3.7 mmol/L (3.5-5.5); Sodium, Blood 137 mmol/L (136-145)
[2024-06-06] MEDS ORDERED: Dose Adjust by Pharmacy XX STA (04:39)
[2024-06-06 04:41] LABS: BAND PERCENT MAN 3 % (0-8); BASOPHILS PERCENT MAN 0 % (0-2); EOSINOPHILS PERCENT MAN 0 % (0-6); LYMPHOCYTES ABSOLUTE MAN 0.38 K/mm3 (0.84-5.20); LYMPHOCYTES PERCENT MAN 3 % (21-46); METAMYELOCYTE ABSOLUTE MAN 0.12 K/mm3 (0.00-0.00); METAMYELOCYTE PERCENT MAN 1 % (0-0); MONOCYTES ABSOLUTE MAN 1.42 K/mm3 (0.16-1.47); MONOCYTES PERCENT MAN 11 % (4-13); MYELOCYTE ABSOLUTE MAN 0.12 K/mm3 (0.00-0.00); MYELOCYTE PERCENT MAN 1 % (0-0); NEUTROPHILS ABSOLUTE MAN 10.86 K/mm3 (1.96-9.15); SEG NEUTROPHILS PERCENT MAN 81 % (41-73); TOTAL CELLS COUNTED 100
--- NOTE | 2024-06-06 09:00 | NUR ---
Patient alert & oriented but very weak in all extremities with limited range of motion. She is in controlled atrial fib & remains hypertensive but prn hydralazine administered with good effect. Was weaned to room air on electrician bus & is tolerating well. Cleared by speech for regular diet but needs assistance eating. OOB to chair with lift. Small bowel movement. Discussed care with Dr. Barnett & received orders to downgrade to [facility]. Will continue to monitor. Will d/c jones & PICC per protocol.
[2024-06-06] MEDS ORDERED: Insulin Regular 100 UNIT/ML 10ML Vial SC SCH ×2 (11:30)
[2024-06-07] VITALS (8 sets, daily range): BP systolic 136–173; BP diastolic 95–121
[2024-06-07 04:08] LABS: Hemoglobin 13.3 g/dL (11.5-16.0); Mean Corpuscular HGB 27.9 pg (26.0-34.0); Mean Corpuscular HGB Conc 32.4 g/dL (31.5-36.5); Mean Corpuscular Volume 86 fL (80-100); Mean Platelet Volume 9.6 fL (9.1-12.4); Platelet Count 289 K/mm3 (150-400); RDW Coefficient Variation 15.8 % (11.7-14.2); RDW Standard Deviation 48.7 fL (35.1-46.3); Red Blood Cell Count 4.77 M/mm3 (3.80-5.20); White Blood Cell Count 17.34 K/mm3 (4.00-11.30)
[2024-06-07 04:28] LABS: Albumin, Blood 2.8 g/dL (3.4-5.0); Albumin/Globulin Ratio 0.7 (0.8-1.8); BAND PERCENT MAN 2 % (0-8); BASOPHILS PERCENT MAN 0 % (0-2); Bilirubin, Total 0.8 mg/dL (0.1-1.0); Calcium, Blood 9.3 mg/dL (8.5-10.1); Creatinine, Blood 0.59 mg/dL (0.40-1.00); EOSINOPHILS ABSOLUTE MAN 0.17 K/mm3 (0.00-0.68); EOSINOPHILS PERCENT MAN 1 % (0-6); LYMPHOCYTES ABSOLUTE MAN 1.73 K/mm3 (0.84-5.20); LYMPHOCYTES PERCENT MAN 10 % (21-46); METAMYELOCYTE ABSOLUTE MAN 0.17 K/mm3 (0.00-0.00); METAMYELOCYTE PERCENT MAN 1 % (0-0); MONOCYTES ABSOLUTE MAN 1.04 K/mm3 (0.16-1.47); MONOCYTES PERCENT MAN 6 % (4-13); Magnesium, Blood 2.1 mg/dL (1.6-2.4); NEUTROPHILS ABSOLUTE MAN 14.21 K/mm3 (1.96-9.15); Phosphorus, Blood 3.7 mg/dL (2.5-4.9); Potassium, Blood 3.9 mmol/L (3.5-5.5); SEG NEUTROPHILS PERCENT MAN 80 % (41-73); TOTAL CELLS COUNTED 100; Total Protein, Blood 6.8 g/dL (6.4-8.2)
[2024-06-07] MEDS ORDERED: Dose Adjust by Pharmacy XX STA (04:30)
--- NOTE | 2024-06-07 06:27 | NUR ---
END OF SHIFT SUMMARY NO ACUTE EVENTS OVER NIGHT. SHE WAS ONLY ABLE TO SLEEP FOR ABOUT 2 HOURS AND THEN WAS AWAKE WATCHING TV THE REST OF THE NIGHT. SHE IS A/O X4 AND ABLE TO MAKE HER NEEDS KNOWN; MOBILITY SLOWLY IMPROVING, SHE IS ABLE TO LIFT CUP OF WATER TO HER MOUTH WITH MINIMAL STRUGGLE. SPO2 >97% ON RA; WHILE ASLEEP WAS PLACED ON HOME CPAP SUCCESSFULLY. AFIB NOTED WITH RATE 80'S. SBP 140'S WITH ONE SBP >160, PRN HYDRALAZINE GIVEN AND HELPFUL. TOLERATING PO INTAKE WELL. PUREWICK WORKING WELL WITH LARGE AMOUNT OF OUTPUT. HEPARIN INFUSING AT 17U/KG/HR. WILL REPORT TO AM RN WHEN AVAILABLE.
[2024-06-07] MEDS ORDERED: Acetaminophen 325 MG TABLET PO PRN (08:45)
[2024-06-07] MEDS ORDERED: Losartan/HCTZ 50-12.5 TAB PT SCH (09:00)
[2024-06-07] MEDS ORDERED: Aspirin 81 MG Chew PO SCH (09:00)
--- NOTE | 2024-06-07 11:22 | NUR ---
Spiritual Care Visit. Pt. is awake and sitting up in a chair. Pts. father is present at the bedside. Pt. is unsettled by the presence of nausea. This top closer kept the visit brief. Facilitated a short life review. Considered matters of sakshi and belief. Pt. displayed evidence of feeling miserable. Prayed for Pt. Pt. verbalized gratitude for the spiritual care visit.
[2024-06-07] MEDS ORDERED: Fluticasone 0.05% Nasal Spray ONE (11:50)
[2024-06-07] MEDS ORDERED: GuaiFENesin 600 MG TabCR PO SCH (11:55)
[2024-06-07] MEDS ORDERED: Loratadine 10 MG Tab PO SCH (11:55)
--- NOTE | 2024-06-07 13:17 | NUR ---
TRANSFER NOTE PT A&OX4, ROOM AIR WITH SATS IN THE 90'S, DENIES SOB, VSS. HR 80-100'S, DENIES CP/PRESSURE. TOLERATING PO INTAKE. TRANSFERS WITH FWW. TRANSPORTED WITH BELONGINGS VIA WHEELCHAIR WITH RNS AND FAMILY MEMBER. NO ACUTE EVENTS.
--- NOTE | 2024-06-07 16:13 | NUR ---
RECEIVED REPORT FROM NAYELY DE LOS SANTOS AND ASSUMED CARE OF PT AT 1600.
--- NOTE | 2024-06-07 17:47 | NUR ---
SHIFT SUMMARY PT A&OX4, ON RA, 1-2P ASSIST PIVOT TO THE BSC, TOLERATING PO, VOIDING, AND DENIED PAIN. PT STATES THAT PHLEGM CONTINUES TO MAKE HER FEEL NAUSEOUS AT TIMES, MEDICATED PER EMAR. PT HYPERTENSIVE, BUT ASYMPTOMATIC, MEDICATED PER EMAR. LITTLE IMPROVEMENT NOTED. NO OTHER ACUTE CHANGES. CALL LIGHT WITHIN REACH AND PT ABLE TO MAKE NEEDS KNOWN.
[2024-06-07] MEDS ORDERED: Fluticasone 0.05% Nasal Spray SCH (21:00)
[2024-06-08] VITALS (9 sets, daily range): BP systolic 130–175; BP diastolic 91–112
[2024-06-08 05:07] LABS: BASOPHILS ABSOLUTE AUTO 0.06 K/mm3 (0.00-0.23); BASOPHILS PERCENT AUTO 0 % (0-2); EOSINOPHILS ABSOLUTE AUTO 0.05 K/mm3 (0.00-0.68); EOSINOPHILS PERCENT AUTO 0 % (0-6); Hematocrit 43.5 % (33.0-51.0); Hemoglobin 14.3 g/dL (11.5-16.0); IMMATURE GRAN ABSOLUTE AUTO 0.82 K/mm3 (0.00-0.10); IMMATURE GRAN PERCENT AUTO 4 % (0-1); LYMPHOCYTES ABSOLUTE AUTO 1.88 K/mm3 (0.84-5.20); LYMPHOCYTES PERCENT AUTO 9 % (21-46); MONOCYTES ABSOLUTE AUTO 0.96 K/mm3 (0.16-1.47); MONOCYTES PERCENT AUTO 4 % (4-13); Mean Corpuscular HGB 28.1 pg (26.0-34.0); Mean Corpuscular HGB Conc 32.9 g/dL (31.5-36.5); Mean Corpuscular Volume 86 fL (80-100); Mean Platelet Volume 9.5 fL (9.1-12.4); NEUTROPHILS ABSOLUTE AUTO 18.19 K/mm3 (1.96-9.15); NEUTROPHILS PERCENT AUTO 83 % (41-73); Platelet Count 316 K/mm3 (150-400); RDW Coefficient Variation 15.9 % (11.7-14.2); RDW Standard Deviation 48.7 fL (35.1-46.3); Red Blood Cell Count 5.09 M/mm3 (3.80-5.20); White Blood Cell Count 21.96 K/mm3 (4.00-11.30)
[2024-06-08 05:58] LABS: Albumin, Blood 3.1 g/dL (3.4-5.0); Albumin/Globulin Ratio 0.8 (0.8-1.8); Bilirubin, Total 1.4 mg/dL (0.1-1.0); Bun/Creatinine Ratio 48.4 (12.0-20.0); Calcium, Blood 9.5 mg/dL (8.5-10.1); Creatinine, Blood 0.62 mg/dL (0.40-1.00); Magnesium, Blood 2.2 mg/dL (1.6-2.4); Phosphorus, Blood 3.9 mg/dL (2.5-4.9); Potassium, Blood 4.3 mmol/L (3.5-5.5); Total Protein, Blood 7.1 g/dL (6.4-8.2)
--- NOTE | 2024-06-08 06:08 | NUR ---
NOC SHIFT SUMMARY: NO ACUTE EVENTS TO REPORT THIS SHIFT. PT A&O X4; CALM AND COOPERATIVE WITH CARE. NO C/O PAIN THIS SHIFT. TELE IN PLACE; A-FLUTTER @ 102 PER COMPLEX DIRECTOR DURING SHIFT ASSESSMENT. PT UP TO BSC WITH 1-2 ASSIST; HEART RATE INTO 140-150s DURING EXERTION. IV ABX CONTINUING. BED LOW AND LOCKED; CALL LIGHT WITHIN REACH. WCTM.
[2024-06-08] MEDS ORDERED: PredniSONE 20 MG Tab PT SCH (09:00)
--- NOTE | 2024-06-08 18:36 | NUR ---
SHIFT SUMMARY PT C/O NAUSEA DUE TO PHLEGHM THAT WAS MEDICATED PER EMAR. BP IMPROVED T/O SHIFT W/ ORDERED BP MEDS. PT UP IN CHAIR THIS SHIFT AND IS A SBA W/ FWW AND GB. NO OTHER ACUTE CHANGES. CALL LIGHT WITHIN REACH AND PT ABLE TO MAKE NEEDS KNOWN.
[2024-06-09] VITALS (7 sets, daily range): BP systolic 110–145; BP diastolic 76–103
[2024-06-09 00:36] LABS: ANTI-NUCLEAR AB ANA,IGG ELISA None Detected (None Detected)
--- NOTE | 2024-06-09 03:53 | NUR ---
SHIFT SUMMARY PATIENT IS ALERT AND ORIENTED. PATIENT HAS HAD NO ACUTE EVENTS THIS SHIFT. PATIENT HAS NOT COMPLAINED OF PAIN THIS SHIFT. PATIENT HAS REPORTED NAUSEA AND MEDICATED PER EMAR. PATIENT HAS NOT REPORTED VOMITTING OR SOB THIS SHIFT. PATIENT HAS WORN CPAP MOST OF NIGHT. PATIENT HAS NOT NEEDED CBG COVERAGE THIS SHIFT. BED IN LOCKED AND LOWEST POSITION. CALL LIGHT IN PLACE. WILL MONITOR UNTIL SHIFT CHANGE.
[2024-06-09 05:36] LABS: Hematocrit 41.7 % (33.0-51.0); Hemoglobin 13.4 g/dL (11.5-16.0)
[2024-06-09 06:09] LABS: Bun/Creatinine Ratio 36.1 (12.0-20.0); Calcium, Blood 9.5 mg/dL (8.5-10.1); Creatinine, Blood 0.69 mg/dL (0.40-1.00); Potassium, Blood 3.8 mmol/L (3.5-5.5)
[2024-06-09] MEDS ORDERED: Furosemide 10 MG/ML 4ML Vial IV ONE ×2 (08:00→10:20)
[2024-06-09] MEDS ORDERED: AmLODIPine Besylate 5 MG Tab PO SCH (09:00)
--- NOTE | 2024-06-09 16:19 | NUR ---
report received verified, uneventful day so far, pt was assisted to chair and has been able to use bsc with walker and minimal assist, PT worked with pt as well. blood sugar coverage was dced, pt hasnt needed coverage, and has requested not to be poked anymore. picc line and powerglide both patent. call light withing reach pt able to make needs known
[2024-06-10 01:03] VITALS: BP 152/107
--- NOTE | 2024-06-10 04:16 | NUR ---
SHIFT SUMMARY NO ACUTE EVENTS DURING THIS SHIFT. PT IS A&O X4, COOPERATIVE WITH CARE, AND ABLE TO MAKE HER NEEDS KNOWN. PT DENIES PAIN AND DISCOMFORT. PT IS RA, CONTINUOUS PULSE OXIMETER, SAT'S > 92%. PT DENIES SOB. PT WEARING CPAP AT NIGHT TIME. PT REPORTS POOR APPETITE, AND REPORTS FAMILY BRINGING FOOD FOR HER. PT REPORTS NAUSEA AND BELCING D/T DISLIKING HOSPITAL FOOD. TELE: Alexander-MICHELLEER @87. SCHEDULED LOPRESSOR ADMINISTERED DURING MIDNIGHT ORDERED. BED AT THE LOWEST POSITION, CALL LIGHT WITHIN REACH.
[2024-06-10 05:27] VITALS: BP 115/79
[2024-06-10 06:24] LABS: Hematocrit 41.3 % (33.0-51.0); Hemoglobin 13.9 g/dL (11.5-16.0)
[2024-06-10 06:44] LABS: Calcium, Blood 9.4 mg/dL (8.5-10.1); Creatinine, Blood 0.67 mg/dL (0.40-1.00); Potassium, Blood 3.6 mmol/L (3.5-5.5)
[2024-06-10 07:11] VITALS: BP 105/75
[2024-06-10 07:14] LABS: GBM, IGG MULTIPLEX BEAD ASSAY 0 AU/mL (0-19); MYELOPEROXIDASE (MPO) AB,IGG 0 AU/mL (0-19); SERINE PROTEINASE 3 PR3 AB,IGG 0 AU/mL (0-19)
[2024-06-10] MEDS ORDERED: Potassium Chloride 20 MEQ/15 ML UDC PO SCH (09:00)
[2024-06-10] MEDS ORDERED: Potassium Chloride 20 MEQ TabCR PO SCH (09:00)
[2024-06-10] MEDS ORDERED: Pantoprazole Sodium 40 MG Tab PO ONE (10:35)
[2024-06-10] MEDS ORDERED: Multivitamins 1 Tab PO ONE (10:40)
[2024-06-10 11:54] VITALS: BP 107/82
[2024-06-10] MEDS ORDERED: METO50ER PO (12:31)
[2024-06-10] MEDS ORDERED: Prednisone10 MG PO (12:32)
--- NOTE | 2024-06-10 13:55 | NUR ---
DISHCARGE SUMMARY PATIENT MEDICATION AND EDUCATION PACKET PRINTED AND REVIEWED WITH GAIL, SIGNATURE OBTAINED. ALL QUESTIONS ANSWERED. PATIENT LEFT UNIT WITH FATHER AND ECONOMIC ANALYST, FABY ZIMMERMAN VIA TRANSPORT CHAIR AND LEAVING HOSPITAL VIA PRIVATE VEHICLE AT 1356.
== END 2024-06-10 14:00 | disposition home health service (06) | DRG 870 ==
LOC: ER 11:55 → ICUE 20:00 → MEDS 06-07 12:20 → ENPENDDIS 06-10 12:10 → MEDS 06-10 14:00
PROVIDERS: Hospitalist; Internal Medicine; Internal Medicine Critical Care Medicine; Nurse Practitioner Acute Care; Physician Assistant; Student in an Organized Health Care Education/Training Program; ADMIT Student in an Organized Health Care Education/Training Program
PROC: 5A1955Z Respiratory Ventilation, Greater than 96 Consecutive Hours (ICD-10-PCS; principal; 2024-05-31)
PROC: 0BH17EZ Insertion of Endotracheal Airway into Trachea, Via Natural or Artificial Opening (ICD-10-PCS; 2024-05-31)
PROC: 3E03329 Introduction of Other Anti-infective into Peripheral Vein, Percutaneous Approach (ICD-10-PCS; 2024-05-31)
PROC: 4A133R1 Monitoring of Arterial Saturation, Peripheral, Percutaneous Approach (ICD-10-PCS; 2024-05-31)
PROC: 0B9H8ZX Drainage of Lung Lingula, Via Natural or Artificial Opening Endoscopic, Diagnostic (ICD-10-PCS; 2024-06-01)
PROC: 5A09457 Assistance with Respiratory Ventilation, 24-96 Consecutive Hours, Continuous Positive Airway Pressure (ICD-10-PCS; 2024-06-05)
DX: A41.9 Sepsis, unspecified organism (principal); J18.9 Pneumonia, unspecified organism; J96.01 Acute respiratory failure with hypoxia; R04.89 Hemorrhage from other sites in respiratory passages; Z68.42 Body mass index [BMI] 45.0-49.9, adult; K08.89 Other specified disorders of teeth and supporting structures; E66.01 Morbid (severe) obesity due to excess calories; M32.9 Systemic lupus erythematosus, unspecified; R65.20 Severe sepsis without septic shock; G47.33 Obstructive sleep apnea (adult) (pediatric); I10 Essential (primary) hypertension; I48.91 Unspecified atrial fibrillation; Z88.1 Allergy status to other antibiotic agents; Z88.8 Allergy status to other drugs, medicaments and biological substances; Z79.4 Long term (current) use of insulin; Z79.899 Other long term (current) drug therapy; Z99.81 Dependence on supplemental oxygen
CPT/HCPCS: 0202U; 31500; 36415; 36600; 51703; 71045; 71046; 71275; 80048; 80053; 80069; 81001; 82330; 82803; 82947; 83516; 83605; 83735; 83880; 84100; 84145; 84478; 85014; 85018; 85025; 85520; 85610; 85651; 85730; 86038; 86160; 87040; 87070; 87205; 87449; 87633; 88108; 88313; 92610; 93005; 93010; 94002; 94003; 94640; 94664; 94760; 94762; 96361; 96365-59; 96375-59; 97110; 97116; 97162; 97165; 97530; 97535; 99285-25; A9270; C1751; C8929; J0282; J0360; J0456; J0612; J0696; J1644; J1815; J1940; J2060; J2185; J2250; J2405; J2470; J2704; J2919; J3010; J7030; J7050; J7060; J7512; Q9957; Q9967

== ENCOUNTER 2024-06-26 11:31 | Inpatient (IN) | payer OTHER ==
[~2024-06-26] VITALS: Ht 167.6 cm; Wt 127.6 kg
[~2024-06-26 11:31] MED LIST changes: +BUPR75 PO; -Etomidate 2MG / ML 10ML Vial IV ONE; +METO50ER PO; +MONT10T PO; +OXYB5 PO; +PRAM.125 PO; +Prednisone10 MG PO; -Rocuronium Bromide 10 MG/ML 5ML Injection IV ONE; +TELMISARTAN-HC1 EAC5 PO; +VALP250 PO
[2024-06-26 12:36] LABS: BASOPHILS ABSOLUTE AUTO 0.02 K/mm3 (0.00-0.23); BASOPHILS PERCENT AUTO 0 % (0-2); EOSINOPHILS PERCENT AUTO 1 % (0-6); Hematocrit 34.2 % (33.0-51.0); Hemoglobin 11.1 g/dL (11.5-16.0); IMMATURE GRAN ABSOLUTE AUTO 0.03 K/mm3 (0.00-0.10); IMMATURE GRAN PERCENT AUTO 0 % (0-1); LYMPHOCYTES ABSOLUTE AUTO 2.04 K/mm3 (0.84-5.20); LYMPHOCYTES PERCENT AUTO 24 % (21-46); MONOCYTES ABSOLUTE AUTO 0.55 K/mm3 (0.16-1.47); MONOCYTES PERCENT AUTO 6 % (4-13); Mean Corpuscular HGB 28.3 pg (26.0-34.0); Mean Corpuscular HGB Conc 32.5 g/dL (31.5-36.5); Mean Corpuscular Volume 87 fL (80-100); Mean Platelet Volume 9.8 fL (9.1-12.4); NEUTROPHILS ABSOLUTE AUTO 5.86 K/mm3 (1.96-9.15); NEUTROPHILS PERCENT AUTO 68 % (41-73); Platelet Count 287 K/mm3 (150-400); RDW Standard Deviation 50.3 fL (35.1-46.3); Red Blood Cell Count 3.92 M/mm3 (3.80-5.20)
[2024-06-26 12:53] LABS: Albumin, Blood 3.1 g/dL (3.4-5.0); Albumin/Globulin Ratio 0.9 (0.8-1.8); Bilirubin, Total 0.5 mg/dL (0.1-1.0); Bun/Creatinine Ratio 21.8 (12.0-20.0); Calcium, Blood 9.1 mg/dL (8.5-10.1); Creatinine, Blood 0.69 mg/dL (0.40-1.00); Globulin, Blood 3.6 g/dL (2.2-4.0); Potassium, Blood 3.4 mmol/L (3.5-5.5); Total Protein, Blood 6.7 g/dL (6.4-8.2)
[2024-06-26] MEDS ORDERED: Heparin Sodium,Porcine/0.5 NS 500 ML IV SCH (18:05)
[2024-06-26 18:10] LABS: Anti-Xa UFH, PHA Monitoring <0.10 IU/mL; International Normalized Ratio 1.02; Prothrombin Time Results 10.9 Sec (9.7-11.5)
[2024-06-26] MEDS ORDERED: Heparin Sodium 5000 Units/ML 1ML MDV IV ONE (18:20)
[2024-06-26] MEDS ORDERED: Ondansetron HCl 2 MG / ML 2ML Vial IV PRN (19:25)
[2024-06-26] MEDS ORDERED: Potassium Chloride 20 MEQ TabCR PO ONE (20:00)
[2024-06-26] MEDS ORDERED: LORA10ER PO ×2 (20:50→23:18)
[2024-06-26] MEDS ORDERED: oxyBUTYnin chloride 5 MG TAB PO SCH (21:00)
[2024-06-26] MEDS ORDERED: BuPROPion HCl 75 MG Tab PO SCH (21:00)
[2024-06-26] MEDS ORDERED: Pramipexole DI-HCL 0.125 MG Tab PO SCH (21:00)
[2024-06-26] MEDS ORDERED: Divalproex Sodium 250 MG TABCR PO SCH (21:00)
[2024-06-26] MEDS ORDERED: FLU VACC TS2024-25(6MOS UP)/PF 45 MCG/0.5 ML SYRINGE IM ONE (22:00)
[2024-06-26 22:51] VITALS: BP 128/79
[2024-06-26] MEDS ORDERED: AMLO10 PO (23:19)
[2024-06-26] MEDS ORDERED: LOSARTAN-HCTZ1 EACH PO (23:19)
[2024-06-26] MEDS ORDERED: METO50ER PO (23:20)
[2024-06-26] MEDS ORDERED: VISBIOME 112.51 EACH PO (23:21)
[2024-06-26] MEDS ORDERED: Aspir 8181 MG PO (23:21)
[2024-06-26] MEDS ORDERED: Prednisone10 MG PO (23:22)
[2024-06-26] MEDS ORDERED: ALBU2.5V5 INH (23:22)
[2024-06-26] MEDS ORDERED: FLONASE ALLERG9.9 M2 (23:23)
[2024-06-26] MEDS ORDERED: K-TAB ER20 ME1 PO (23:24)
[2024-06-26] MEDS ORDERED: Acetaminophen650 M1 PO (23:25)
[2024-06-26] MEDS ORDERED: GUAI600T33 PO (23:25)
--- NOTE | 2024-06-27 00:13 | NUR ---
Pt admitted from ED with bilateral PE's, L/S are very diminshed, O2 sat is >90% on RA, Pt placed on tele and television tube inspector reports afib with rvr in the 160's, contacted MD whom arrived to assess at bedside and ordered noted to transfer to PCU and place on a cardizem drip. Pt A&O x4. Heparin drip at 32.4 mls/ hr next antiXA due at 0100.
[2024-06-27 01:33] LABS: Bun/Creatinine Ratio 24.3 (12.0-20.0); Calcium, Blood 8.4 mg/dL (8.5-10.1); Creatinine, Blood 0.78 mg/dL (0.40-1.00); Potassium, Blood 3.6 mmol/L (3.5-5.5)
[2024-06-27 01:38] LABS: Hematocrit 31.7 % (33.0-51.0); Hemoglobin 10.3 g/dL (11.5-16.0); Mean Corpuscular HGB 28.9 pg (26.0-34.0); Mean Corpuscular HGB Conc 32.5 g/dL (31.5-36.5); Mean Corpuscular Volume 89 fL (80-100); Mean Platelet Volume 9.9 fL (9.1-12.4); Platelet Count 281 K/mm3 (150-400); RDW Coefficient Variation 16.1 % (11.7-14.2); RDW Standard Deviation 52.3 fL (35.1-46.3); Red Blood Cell Count 3.57 M/mm3 (3.80-5.20); White Blood Cell Count 7.59 K/mm3 (4.00-11.30)
[2024-06-27] MEDS ORDERED: Clarify Drug Order XX ONE (01:50)
[2024-06-27 04:15] VITALS: BP 132/97
[2024-06-27 07:27] VITALS: BP 135/73
[2024-06-27] MEDS ORDERED: Dose Adjust by Pharmacy XX STA (07:44)
[2024-06-27] MEDS ORDERED: Metoprolol Succinate 25 MG TABCR PO SCH (09:00)
[2024-06-27] MEDS ORDERED: Losartan Potassium 50 MG Tab PO SCH (09:00)
--- NOTE | 2024-06-27 10:38 | NUR ---
1030-RECIEVED VOCERA CALL FROM [facility] IN IMAGING. RESULTS FOLLOWS- OCCLUSIVE THROMBUS IN POPLITEAL VEIN AND POST TIBEAL VEIN, PARTIAL THROMBUS IN PARANEAL VEIN, LEFT AXILLARY DVT, DVT IN LEFT BASILIC VEIN. INFORMED OF RESULTS AT 1035.
[2024-06-27] MEDS ORDERED: Metoprolol Succinate 50 MG TABCR PO SCH (13:00)
[2024-06-27 13:18] VITALS: BP 123/73
[2024-06-27] MEDS ORDERED: Furosemide 40 MG Tab PO SCH (15:00)
[2024-06-27] MEDS ORDERED: Potassium Chloride 20 MEQ TabCR PO SCH (15:00)
[2024-06-27 15:21] VITALS: BP 115/68
--- NOTE | 2024-06-27 15:30 | NUR ---
SHIFT SUMMARY PT AOX4, COOPERATIVE, ABLE TO MAKE NEEDS KNOWN. AMUBLATED TO BATHROOM INDEPENDANTLY. CONNECTED TO TELE, HR DOES INCREASE TO APPROX 140-160BPM WITH MINIMAL ACTIVITY, IS AWARE AND ADDED/INCREASED MOTOPROLOL DOSE. STARTED LASIX TO ASSIST WITH LEG SWELLING, ADDED POTASSIUM. WEARING ANTIEMBOLISM STOCKING. CONT HEPARIN DRIP AT 90KG WEIGHT, 18UNITS/HR/HR. BED IN LOWEST POSITION, CALL LIGHT WITHIN REACH.
[2024-06-27 19:42] VITALS: BP 95/80
[2024-06-28 03:20] VITALS: BP 114/75
[2024-06-28 06:36] LABS: Hematocrit 36.2 % (33.0-51.0); Hemoglobin 11.1 g/dL (11.5-16.0); Mean Corpuscular HGB 28.4 pg (26.0-34.0); Mean Corpuscular HGB Conc 30.7 g/dL (31.5-36.5); Mean Corpuscular Volume 93 fL (80-100); Mean Platelet Volume 10.1 fL (9.1-12.4); Platelet Count 343 K/mm3 (150-400); RDW Coefficient Variation 16.2 % (11.7-14.2); RDW Standard Deviation 55.1 fL (35.1-46.3); Red Blood Cell Count 3.91 M/mm3 (3.80-5.20); White Blood Cell Count 6.65 K/mm3 (4.00-11.30)
--- NOTE | 2024-06-28 06:36 | NUR ---
SHIFT SUMMARY: Pt is admitted for P.E. and is a full code. Is alert and able to make needs known. ADLs have been IND. denies pain or discomfort when asked. Papi reports afib in the 90s with spikes into the 150-160s for short periods that coincide with her getting up to use the restroom. On a heparin drip with no adjustments done this shift.
[2024-06-28 07:14] LABS: Bun/Creatinine Ratio 23.7 (12.0-20.0); Calcium, Blood 9.4 mg/dL (8.5-10.1); Creatinine, Blood 0.8 mg/dL (0.40-1.00)
[2024-06-28] MEDS ORDERED: Acetaminophen 325 MG TABLET PO PRN (07:20)
[2024-06-28] MEDS ORDERED: Albuterol 2.5 MG/3 ML VIAL INH PRN (07:20)
[2024-06-28] MEDS ORDERED: Dose Adjust by Pharmacy XX STA (07:22)
[2024-06-28 07:35] VITALS: BP 135/97
[2024-06-28] MEDS ORDERED: GuaiFENesin 600 MG TabCR PO SCH (09:00)
[2024-06-28] MEDS ORDERED: Metoprolol Succinate 50 MG TABCR PO SCH (09:00)
--- NOTE | 2024-06-28 09:20 | NUR ---
TALKED WITH PHARMACY AND INFORMED ME THAT I CAN TURN OFF HEPARIN DRIP AT THE SAME TIME I ADMINISTER FIRST DOSE OF ELIQUIS DUE TO PT BEING WITHIN THERAPEUTIC RANGE.
[2024-06-28] MEDS ORDERED: Apixaban 5 MG Tab PO SCH ×2 (09:25→21:00)
[2024-06-28] MEDS ORDERED: ELIQUIS5 M2 PO (11:51)
--- NOTE | 2024-06-28 15:52 | NUR ---
DISCHARGE 1540 PT DISCHARGED AOX4, COOPERATIVE, WENT HOME WITH FAMILY MEMBER. BOTH IV'S DC'D BY [facility], ALONG WITH TELE BOX. THIS RN WENT OVER DISCHARGE PAPERWORK WITH PT AND WHEELED PT IN WHEELCHAIR DOWN TO PT ENTRANCE TO MEET FAMILY MEMBER IN VAN. PT TRANSFERRED INTO VAN WITHOUT COMPLICATIONS. DISCHARGE PAPERWORK WENT WITH FAMILY MEMBER.
== END 2024-06-28 15:48 | disposition home or self-care (01) | DRG 176 ==
LOC: ER 11:31 → MEDS 11:32
PROVIDERS: Nurse Practitioner Acute Care; Physician Assistant; Student in an Organized Health Care Education/Training Program; ADMIT Student in an Organized Health Care Education/Training Program
DX: I26.99 Other pulmonary embolism without acute cor pulmonale (principal); Z68.42 Body mass index [BMI] 45.0-49.9, adult; I82.622 Acute embolism and thrombosis of deep veins of left upper extremity; I82.401 Acute embolism and thrombosis of unspecified deep veins of right lower extremity; I82.432 Acute embolism and thrombosis of left popliteal vein; I82.442 Acute embolism and thrombosis of left tibial vein; I82.452 Acute embolism and thrombosis of left peroneal vein; I10 Essential (primary) hypertension; G47.33 Obstructive sleep apnea (adult) (pediatric); E66.01 Morbid (severe) obesity due to excess calories; M32.9 Systemic lupus erythematosus, unspecified; I48.91 Unspecified atrial fibrillation; Z88.6 Allergy status to analgesic agent; Z88.1 Allergy status to other antibiotic agents; Z88.8 Allergy status to other drugs, medicaments and biological substances; Z82.49 Family history of ischemic heart disease and other diseases of the circulatory system
CPT/HCPCS: 36415; 71046; 71260; 80048; 80053; 84484; 85025; 85027; 85379; 85520; 85610; 85730; 93005; 93010; 93308; 93970; 93971; 94762; 96365-59; 96366; 99285-25; A9270; G0378; J1644; Q9967

== ENCOUNTER → 2024-08-09 | Outpatient (CLI) | payer OTHER ==
[~2024-08-09] MED LIST changes: +ALBU2.5V5 INH; +AMLO10 PO; +Acetaminophen650 M1 PO; +Aspir 8181 MG PO; +ELIQUIS5 M2 PO; +FLONASE ALLERG9.9 M2; +GUAI600T33 PO; +K-TAB ER20 ME1 PO; +LORA10ER PO; +LOSARTAN-HCTZ1 EACH PO; +VISBIOME 112.51 EACH PO
== END | disposition home or self-care (01) ==
LOC: LAB SHORT 09:42 → LAB 09:42
DX: R05.1 Acute cough (principal)
CPT/HCPCS: 87070; 87205

== ENCOUNTER 2024-10-05 17:20 | Emergency (ER) | payer OTHER ==
[~2024-10-05] VITALS: Ht 154.9 cm; Wt 129.7 kg
[2024-10-05 18:08] VITALS: BP 150/105
== END 2024-10-05 20:46 | disposition home or self-care (01) ==
LOC: ER 17:20
DX: S80.12XA Contusion of left lower leg, initial encounter (principal); I82.532 Chronic embolism and thrombosis of left popliteal vein; I10 Essential (primary) hypertension; G47.33 Obstructive sleep apnea (adult) (pediatric); J45.909 Unspecified asthma, uncomplicated; Z88.8 Allergy status to other drugs, medicaments and biological substances; Z88.1 Allergy status to other antibiotic agents; Z88.6 Allergy status to analgesic agent; Z79.01 Long term (current) use of anticoagulants; Z79.899 Other long term (current) drug therapy; W22.8XXA Striking against or struck by other objects, initial encounter
CPT/HCPCS: 93971; 99283-25